=== PATIENT | female | born 1960 | race African-American/Black ===

== ENCOUNTER 2021-03-08 00:11 | Emergency (ER) | payer OTHER, MEDICAID ==
[~2021-03-08] VITALS: Ht 182.9 cm; Wt 95.3 kg
[2021-03-08 00:11] VITALS: BP 106/73
--- NOTE | 2021-03-08 00:11 | NUR ---
PT BIBA ALS FOR ALLERGIC REACTION X 1 HOUR AGO. [facility] REPORTED GIVING 25 MG BENADRYL AND O2 2 L NASAL CANNULA EN ROUTE. PT ARRIVED ON ROOM AIR, O2 SAT 95%. A&O X 4. RESPIRATIONS EVEN AND UNLABORED. PT ABLE TO TALK IN COMPLETE SENTENCES. 3 HIVES NOTED TO LEFT EYE WITH BILATERAL SWELLING TO EYELIDS. PT DENIES PAIN. LUNGS CLEARS THROUGHOUT UPON AUSCULTATION. MED HX: ELEVATED CHOLESTEROL, DIVERTICULITIS, ACID REFLUX, SPINAL STENOSIS, BULLET SHELL IN PELVIS ALLERGIES: SHRIMP, CODEINE, TRAMADOL, TORADOL
--- NOTE | 2021-03-08 00:49 | NUR ---
ERMD AT BEDSIDE.
[2021-03-08] MEDS ORDERED: EPINEPHrine 1 MG/ML AMP IM ONE (00:55)
[2021-03-08] MEDS ORDERED: FAMOTIDINE 20 MG TAB PO ONE (00:55)
[2021-03-08] MEDS ORDERED: methylPREDNISolone SS 125 MG in WATER STERILE 2 ML IM ONE (00:55)
[2021-03-08] MEDS ORDERED: diphenhydrAMINE 50 MG/ML VIAL IM ONE (00:55)
[2021-03-08] MEDS ORDERED: methylPREDNISolone SS 125 MG/2 ML VIAL ONE (01:08)
[2021-03-08] MEDS ORDERED: WATER STERILE 10 ML MC ONE (01:08)
--- NOTE | 2021-03-08 01:30 | NUR ---
Patient appears to be resting comfortably in bed, EYES CLOSED. Vital Signs within normal limits. Respirations even and unlabored. NO NOTED DISTRESS AT THIS TIME.
[2021-03-08] MEDS ORDERED: EPIN1KIT31 IM (02:24)
[2021-03-08] MEDS ORDERED: DIPH25SG5 PO (02:24)
[2021-03-08] MEDS ORDERED: FAMO-90 PO (02:24)
[2021-03-08] MEDS ORDERED: PRED20TA5 PO (02:24)
--- NOTE | 2021-03-08 02:30 | NUR ---
Patient discharged with v/s stable. Written and verbal after care instructions given , PT DID NOT WANT EXPLANATION, STATING "I JUST WANT TO LEAVE, NOT TALK". Patient alert, oriented. Ambulatory with steady gait. All questions addressed prior to discharge. ID band removed. Patient advised to follow up with PMD. Rx of BENADRYL, EPIPEN, PEPCID AND DELTASONE given. PATIENT REFUSED MEDICATION EDUCATION. Opportunity to ask questions provided and PT DECLINED. [employer] PROVIDED TO PT.
== END 2021-03-08 02:30 | disposition home or self-care (01) ==
LOC: MED 00:11
DX: T78.1XXA Other adverse food reactions, not elsewhere classified, initial encounter (principal)
CPT/HCPCS: 96372; 99284; J0171; J2930; J1200